=== PATIENT | male | born 1995 | race Caucasian/White ===

== ENCOUNTER 2020-04-07 20:22 | Emergency (ER) | payer OTHER ==
[2020-04-07 20:31] VITALS: BP 124/68
[2020-04-07] MEDS ORDERED: IBUPROFEN 600 MG TABLET PO ONE (20:40)
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
== END 2020-04-07 20:50 | disposition home or self-care (01) ==
LOC: ER 20:22
DX: M54.5 Low back pain (principal); S40.212A Abrasion of left shoulder, initial encounter; M54.2 Cervicalgia; V49.40XA Driver injured in collision with unspecified motor vehicles in traffic accident, initial encounter; R68.83 Chills (without fever); R53.1 Weakness; F17.200 Nicotine dependence, unspecified, uncomplicated
CPT/HCPCS: 99283